=== PATIENT | male | born 1935 | race Caucasian/White ===

== ENCOUNTER 2016-12-15 08:49 | Inpatient (IN) | payer MEDICARE, OTHER ==
[~2016-12-15] VITALS: Ht 180.3 cm; Wt 81.1 kg
[~2016-12-15 08:49] MED LIST: LEVO75TA4 PO
[2016-12-15 08:52] VITALS: BP 120/68; PULSE 78; RESP 18; O2SAT 95
[2016-12-15] MEDS ORDERED: 0.9% Sodium Chloride 1,000 ML IV ONE (08:58)
[2016-12-15] MEDS ORDERED: Ondansetron 2 mg/mL 2 mL Inj IV PRN (09:00)
[2016-12-15 09:27] LABS: BASOPHILS % (AUTO) 0.4 % (0-3); EOSINOPHILS % (AUTO) 5.7 % (0-5); MONOCYTES % (AUTO) 8.5 % (4-12); Mean Corpuscular Hemoglobin 28.8 pg (27.0-35.0); NEUTROPHILS % (AUTO) 71.7 % (40-74); Platelet Count 336 bil/L (150-400)
--- NOTE | 2016-12-15 09:54 | ED.REPORT ---
HPI-General Illness Date of Service Dec 15, 2016 ED Provider: Adrián Mcdonough MD History of Present Illness: Patient is a 80 y.o. M with past medical history of metastatic penile cancer, doppler US of right lower extremity showed presence of DVT. Patient reported a week history of right lower legt swelling post inguinal lymph node resection. Patient recently seen as outpatient in oncology noted to have severe hypothyroidism and started on 75 mcg. Nursing Notes Stated Complaint: CLOT IN LEG Chief Complaint: Extremity Trauma Nursing Notes Reviewed: Yes Allergies: Coded Allergies: No Known Allergies (Unverified , 12/15/16) Scheduled Levothyroxine (Levothyroxine) 150 Mcg Tablet 150 MCG PO DAILY General Time Seen by MD: 09:15 Chief Complaint Other (metastatic penile cancer, DVT RLE) Sudden in Onset?: No Onset Occurred: 1 week ago Past Medical History Past Medical History Notes: Past Medical History Primary cancer of glans penis Penile mass Metastatic penile cancer Past Surgical History Penile mass resection Inguinal lymphnode resection Family History noncontributory Smoking History Unknown if Ever Smoker Social History Alcohol Use: Denies alcohol use Other Social History: Good social support, Local resident Ambulatory Status Independent Review of Systems Full Review of Systems Constitutional: Reports: Lethargy, Denies: Chills, Fatigue, Fever, Malaise, Recent wt loss, Weakness - generalized Eyes: Denies: Blurred left, Blurred right Ears / Nose / Throat: Reports: Hearing loss bilateral Respiratory: Reports: Non-productive cough, Denies: Dyspnea on exertion, Hemoptysis Cardiovascular: Denies: Chest pain, Syncope GI: Denies: Bloody/tarry stool, Hematemesis Musculoskeletal: Reports: Extremity swelling (right lower extremity) Physical Exam Vital Signs Vital Signs Date Time Temp Pulse Resp B/P Pulse Ox O2 Delivery O2 Flow Rate FiO2 12/15/16 08:52 36.0 78 18 120/68 95 Room Air Initial VS: Reviewed General/Constitutional: Well-developed, Well-nourished Head / Eyes: Atraumatic, Normocephalic, PERRL ENT: Mucous membranes moist, Conjunctiva normal, No scleral icterus Neck: Supple, Non-tender, Full range of motion Respiratory: Breath sounds normal, Clear to auscultation, No respiratory distress Cardiovascular: Regular rate & rhythm, Heart sounds normal, Intact distal pulses Abdomen / GI: Soft, Non-tender, No guarding, No rebound, No distention Back: No CVA tenderness Skin: Warm, Dry, No cyanosis Neurologic: Alert, Oriented, Nonfocal Psychiatric: Mood/affect normal, Behavior normal, Normal thought content Conjunctiva / Sclera: Positive: Pallor Right Hip: Positive: Swelling present... (Moderate from right inguinal area with wound vac extending to greater trochanter, palpable hematoma felt) Right Thigh: Positive: Swelling present... (Moderate) Right Leg / Calf: Positive: R calf > L calf, Swelling present... (Moderate), Tenderness present... (Postive Homans sign and chord felt in calf ) Interpretation & Diagnostics Lab Results Interpretation Result Diagram: 12/15/16 0920 12/15/16 0920 Test 12/15/16 09:20 White Blood Count 6.7th/mm3 (3.8-10.1) Red Blood Count 3.02mil/mm3 (4.40-5.80) Hemoglobin 8.7g/dL (13.8-17.2) Hematocrit 28.7% (41.0-50.0) Mean Corpuscular Volume 95.0fL (81-100) Mean Corpuscular Hemoglobin 28.8pg (27.0-35.0) Mean Corpuscular Hemoglobin Concent 30.3% (32.0-37.0) Red Cell Distribution Width 13.5% (12.3-15.4) Platelet Count 336bil/L (150-400) Neutrophils (%) (Auto) 71.7% (40-74) Lymphocytes (%) (Auto) 13.6% (14-46) Monocytes (%) (Auto) 8.5% (4-12) Eosinophils (%) (Auto) 5.7% (0-5) Basophils (%) (Auto) 0.4% (0-3) Prothrombin Time 10.3sec (8.1-12.5) Prothromb Time International Ratio 0.96ratio Activated Partial Thromboplast Time 30.3sec (22.8-33.0) Sodium Level 139mEq/L (134-144) Potassium Level 4.1mEq/L (3.5-5.2) Chloride Level 102mEq/L (97-108) Carbon Dioxide Level 24mmol/L (18-29) Blood Urea Nitrogen 22mg/dL (8-27) Creatinine 1.23mg/dL (0.76-1.27) Estimat Glomerular Filtration Rate 60mL/min (>59) Glucose Level 100mg/dL (60-99) Calcium Level 7.8mg/dL (8.5-10.1) Magnesium Level 2.2mg/dL (1.6-2.6) Total Bilirubin 0.2mg/dL (0.0-1.2) Aspartate Amino Transf (AST/SGOT) 11U/L (0-50) Alanine Aminotransferase (ALT/SGPT) 5U/L (0-44) Alkaline Phosphatase 96U/L (25-160) Total Protein 6.1g/dL (6.4-8.4) Albumin 2.6g/dL (3.4-5.0) Lipase 12U/L (13-60) Hold Farnsworth Top Tube Received (Received) CT Abd / Pelvis Interpretation IMPRESSION: 1. No findings to suggest vascular injury in the right inguinal operative bed. No findings to suggest hematoma or abscess in this region. 2. Small gas-containing soft tissue defect at the surgical bed with surrounding edema or probable postsurgical change as above. 3. Subcutaneous edema of the right lower extremity. This may be associated with postoperative cellulitis. Please correlate clinically. 4. Sclerotic lesion in the left iliac wing which has demonstrated 11 months stability. Continued surveillance recommended. This may represent an enchondroma. Dictated by: Mis Longoria M.D. on 12/15/2016 at 11:31 Approved by: Mis Longoria M.D. on 12/15/2016 at 11:40 Interpretation / Wet Read by: Interpret - Radiologist US Focused Lower Ext Venous IMPRESSION: 1. Extensive occlusive right lower extremity deep venous thrombosis. 2. 6.9 x 7.5 cm irregular complex fluid collection at the site of right groin surgical drain, presumably postoperative hematoma. Findings were discussed with Dr. Richardson by the document image technician; patient was sent to the emergency department for further management. Dictated by: Daniel Quevedo M.D. on 12/15/2016 at 8:55 Approved by: Daniel Quevedo M.D. on 12/15/2016 at 8:58 Exam Interpreted by: Radiologist Re-Eval/Medical Decision Med Decision/Clinical Course Patient is a 80 y.o. M with past medical history of metastatic penile cancer, doppler US of right lower extremity showed presence of DVT. DDx Right LE DVT, hypercoagulable state due to mestatic disease, Hematoma of right hip and lower extemity to knee Anemia of chronic disease vs new bleed associated with hematoma of right hip CBC Hgb 8.7 last was 10, CMP normal CT pelvis and right lower extremity ordered, no signs of acute bleeding, possible post surgical cellulitis Consultation : Consulted With: Hospitalist Requested Call at: 10:00 Discharge & Departure Primary Impression: DVT (deep venous thrombosis) Additional Impression: History of penile cancer Disposition: ADMITTED TO HOSPITAL Referrals: Angelito Maguire MD (PCP) Crit Care Except Billable Proc Time Spent: 30-74 minutes Services Performed: Patient management by me, Time spent at bedside, Reviewing test results, Reviewing imaging, Discussing patient care, Documentation in record, Time with fam/surrogate Attending Statement 80-year-old male history of penile cancer with recent lymph node removal right groin and subsequent fistula with drain placed presenting from ultrasound after right lower extremity ultrasound showed DVT. No history of DVTs. Patient had some concern for a hematoma around the drain CT scan was performed with no evidence of hematoma. His hemoglobin is 8.7 which is down slightly from several days ago 10. Discussed with patient's oncologist patient will be admitted to hospital. Heparin drip started. Resident discuss case with hospitalist. Critical care time billed as above. GURWIDNER DE LA TORRE DO Dec 15, 2016 09:43 Adrián Mcdonough MD Dec 15, 2016 09:54
[2016-12-15 09:55] LABS: INR 0.96 ratio
[2016-12-15] MEDS ORDERED: Heparin 25K Unit/500mL 0.45 NS 25,000 UNIT in IV Premix 1 EACH IV ONE (10:00)
[2016-12-15] MEDS ORDERED: Heparin 5,000 Unit/mL Inj IVPUSH ONE (10:00)
[2016-12-15 10:02] LABS: Magnesium 2.2 mg/dL (1.6-2.6)
[2016-12-15] MEDS ORDERED: LEVO150T5 PO (11:26)
--- NOTE | 2016-12-15 11:42 | DRSVH ---
PROCEDURE: CT PELVIS WITH CONTRAST ([id number]) INDICATIONS: right hip/extremity hematoma TECHNIQUE: After the administration of intravenous contrast, 5 mm thick sections acquired from the iliac crests to the symphysis. 5 mm coronal and sagittal reformats were acquired. For radiation dose reduction, the following was used: automated exposure control, adjustment of mA and/or kV according to patient size. COMPARISON: [facility], CT, CT ABD PELVIS W&WO CON IVP, 01/19/2016, 12:09. [facility], CT, CT CHEST ABD PELVIS W CON, 09/26/2016, 16:40. FINDINGS: Image quality: Excellent. Peritoneum and bowel: Bowel loops demonstrate normal wall thickness and caliber. There are scattered sigmoid diverticula. No evidence for diverticulitis. No free fluid or air. Genitourinary: Bladder wall thickness is normal. Nodes and vessels: Dense atheromatous calcifications are present within the bilateral iliac arteries. The internal and external iliac arteries are patent bilaterally. Mild atheromatous calcifications ar e present bilaterally in the common femoral arteries. The right superficial femoral artery and profun da are patent. Mild mural irregularity is present secondary to atheromatous calcification. No finding s to suggest extravasation or hematoma. Arteries of the left lower extremity are patent. No inguinal adenopathy. Bones: Sclerotic focus within the left iliac wing is unchanged when compared with the study dated 01/03 04/20. Miscellaneous: A gas-filled soft tissue defect is present at the right inguinal canal. There is a mod erate amount of surrounding fat stranding suggesting edema or tissue injury. There is no discrete flu id collection to suggest abscess or hematoma. There is extensive subcutaneous emphysema of the right lower extremity subcutaneous fat. IMPRESSION: 1. No findings to suggest vascular injury in the right inguinal operative bed. No findings to suggest hematoma or abscess in this region. 2. Small gas-containing soft tissue defect at the surgical bed with surrounding edema or probable pos tsurgical change as above. 3. Subcutaneous edema of the right lower extremity. This may be associated with postoperative celluli tis. Please correlate clinically. 4. Sclerotic lesion in the left iliac wing which has demonstrated 11 months stability. Continued surv eillance recommended. This may represent an enchondroma. Dictated by: Mis Longoria M.D. on 12/15/2016 at 11:31 Approved by: Mis Longoria M.D. on 12/15/2016 at 11:40
[2016-12-15 12:00] VITALS: BP 135/72; PULSE 75; RESP 18; O2SAT 95
[2016-12-15 12:05] VITALS: PULSE 75
--- NOTE | 2016-12-15 13:27 | PCM.HPMED ---
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 Of note, pt also noted to have severe hypothyroidism on 12/11 TSH45.3, FT4 0.35, prior TSH59 in . plan was to increase LT4 from 75 to 150mcg. Regarding senior living plan for cancer, it was noted that pt cannot be a candidate for Rtx given complicated groin fistula. therefore, Cthemotx with Carb/taxol was planned after obtaining CT c/a/p to rule out metastatis In ED, VS 120/68, 78, 18, 95%on RA, afebrile, ED ordered CT pelvis with contrast , which showed no hematoma/abscess/vascular injury. During encounter, patient stated that he has not had any acute difference in his right leg, denied any acute worsening or pain, swelling, warmth, leg size has been increased since the surgery , been wearing ALEXANDER stocking. Patient can ambulate without assistance, denied difficulty breathing, hemoptysis, chest pain, palpitation, urinary difficulties, previous head trauma, bleeding episode , FHx of bleeding diathesis, fever, chills. 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 The patient was very passive when I saw him in consultation, was not interested in any significant intervention. I checked his thyroid function on the way out of the clinic, and it came back severely abnormal with a TSH of 59, consistent with severe hypothyroidism. We had called in levothyroxine 75 mcg to start with. I have not seen him in the last two months. The patient has very little contact to the medical field. Since he wanted to minimize interventions as much as possible after his distal penectomy, we had to modify the decision making of management. Ideally, we would have administered systemic chemotherapy after the penectomy for downsizing his disease and reduce micrometastatic risk, followed by adjuvant radiation to the pelvis. However, since the patient was not interested in chemotherapy, we discussed at our Tumor Board and decided that as other possible pragmatic approach would be to perform a superficial inguinal lymphadenectomy and then perform possibly radiation to the celiac node and avoid chemotherapy until evidence of systemic relapse. The patient underwent a right lymphadenectomy by Dr. Ophelia rBar who had performed his penectomy on November 01, 2016. Pathology showed eight lymph nodes submitted, of which five were involved with metastatic squamous cell carcinoma with focal extracapsular extension. 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 [facility] the past several weeks by Dr. Macario. He has a drain in place, as well as wound VAC. In review of Dr. Macario's note of December 06, he has a 1.5 x 0.5 cm opening in the right groin that is relatively deep, almost 8 cm. Negative-pressure therapy with wound VAC continues. He had canceled his visit with me a couple of times because of this wound issue but this time we asked him to still come in. He is here with his son. Review of Systems: Pertinent positives as noted in history of present illness. 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 His sons state that he is relatively active. He is and lives alone. He has two sons. He has no history of smoking or alcoholism. FAMILY HISTORY: no hx of bleeding diathesis Social History Hx Alcohol Use: No Hx Substance Use: No Smoking Status: Unknown if Ever Smoker Exam Vital Signs Vital Sign - Last Date Time Temp Pulse Resp B/P Pulse Ox O2 Delivery O2 Flow Rate FiO2 12/15/16 08:52 36.0 78 18 120/68 95 Room Air Exam NAD, comfortably laying down on the bed no JVD, MMM, no LAD RRR, nl s1, s2 no mrg CTAB, no w,c S,ND,NT,normoactive BS+ RLE applied ALEXANDER stocking, nontender, swollen, not warm, pulses 2/2 Lab and Diagnostics Result Diagram: 12/15/1691912/15/16919 X-Rays, CTs and MRIs PROCEDURE: CT PELVIS WITH CONTRAST ([id number]) INDICATIONS: right hip/extremity hematoma TECHNIQUE: After the administration of intravenous contrast, 5 mm thick sections acquired from the iliac crests to the symphysis. 5 mm coronal and sagittal reformats were acquired. For radiation dose reduction, the following was used: automated exposure control, adjustment of mA and/or kV according to patient size. COMPARISON: [facility], CT, CT ABD PELVIS W&WO CON IVP, 01/19/2016, 12:09. [facility], CT, CT CHEST ABD PELVIS W CON, 09/26/2016, 16: 40. FINDINGS: Image quality: Excellent. Peritoneum and bowel: Bowel loops demonstrate normal wall thickness and caliber. There are scattered sigmoid diverticula. No evidence for diverticulitis. No free fluid or air. Genitourinary: Bladder wall thickness is normal. Nodes and vessels: Dense atheromatous calcifications are present within the bilateral iliac arteries. The internal and external iliac arteries are patent bilaterally. Mild atheromatous calcifications are present bilaterally in the common femoral arteries. The right superficial femoral artery and profunda are patent. Mild mural irregularity is present secondary to atheromatous calcification. No findings to suggest extravasation or hematoma. Arteries of the left lower extremity are patent. No inguinal adenopathy. Bones: Sclerotic focus within the left iliac wing is unchanged when compared with the study dated 01/19/16. Miscellaneous: A gas-filled soft tissue defect is present at the right inguinal canal. There is a moderate amount of surrounding fat stranding suggesting edema or tissue injury. There is no discrete fluid collection to suggest abscess or hematoma. There is extensive subcutaneous emphysema of the right lower extremity subcutaneous fat. IMPRESSION: 1. No findings to suggest vascular injury in the right inguinal operative bed. No findings to suggest hematoma or abscess in this region. 2. Small gas-containing soft tissue defect at the surgical bed with surrounding edema or probable postsurgical change as above. 3. Subcutaneous edema of the right lower extremity. This may be associated with postoperative cellulitis. Please correlate clinically. 4. Sclerotic lesion in the left iliac wing which has demonstrated 11 months stability. Continued surveillance recommended. This may represent an enchondroma. Dictated by: Mis Longoria M.D. on 12/15/2016 at 11:31 Approved by: Mis Longoria M.D. on 12/15/2016 at 11:40 Additional Diagnostics: PROCEDURE: US VEINOUS LEG DUPLEX UNILATERAL, RIGHT INDICATIONS: 80 year-old male with penile carcinoma, and right leg swelling. TECHNIQUE: Real-time imaging, as well as color and pulse Doppler interrogation, were performed of the lower extremity deep veins from the inguinal ligament to the popliteal fossa. COMPARISON: [facility], CT, CT CHEST ABD PELVIS W CON, 09/26/2016, 16:40. FINDINGS: There is extensive noncompressible echogenic thrombus involving the common femoral vein, superficial femoral vein, popliteal vein, and posterior tibial vein. Color and pulse Doppler demonstrate absent intraluminal flow. There is absent augmentation response to distal compression maneuver. An irregular right groin fluid collection measures 6.9 x 7.5 cm, at the site of surgical drain from recent inguinal lymph node dissection. IMPRESSION: 1. Extensive occlusive right lower extremity deep venous thrombosis. 2. 6.9 x 7.5 cm irregular complex fluid collection at the site of right groin surgical drain, presumably postoperative hematoma. Findings were discussed with Dr. Richardson by the roulette dealer; patient was sent to the emergency department for further management. Dictated by: Daniel Quevedo M.D. on 12/15/2016 at 8:55 Approved by: Daniel Quevedo M.D. on 12/15/2016 at 8:58 Assessment & Plan 1. extensive RLE dvt, POA, presumably acute as per Radiology given complete obstruction in Duplex, in the setting of malignancy, surgery<2mo c/b Rt groin lymphatic fistula, pt is not symptomatic. -started heparin gtt for now, unlikely needs thrombolytic intervention given stable status -given poor eGFR60, pt likely not good candidate for NOAC, LMWH, consider starting Coumadin, appreciate oncology input. -monitor h/h, pt, ptt q6h, -monitor respiratory sx closely for PE as clots dissolve, currently no signs of PE. 2.severe hypothyroidism, -recently increased to 150mcg qd by , after 2mo of 75mcg, still this huge increment even considering TSH, will increase 25mcg especiallly given age to prevent adverse effect, pt is not symptomatic, and TSH should be checked in 6wks. 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
--- NOTE | 2016-12-15 16:51 | PCM.PHAPRO ---
Progress Indication: DVT Home Dose: NEW START INR 0.95 CONCURRENT:NONE GOAL INR: 2-3 Pharmacy will continue to follow daily. Thank you for consulting pharmacy in the care of this patient. Jonathan Alatorre Dec 15, 2016 16:51
[2016-12-15 18:07] VITALS: BP 151/84; PULSE 97; RESP 19; O2SAT 96
--- NOTE | 2016-12-15 20:05 | CCS NOTE ---
[facility] [address] [place] [id number] MEDICAL ONCOLOGY OFFICE NOTE PATIENT: PAMELA BLANDON : 1935 MR#: [id number] DATE: 12/15/2016 JOB ID: [id number] DATE: 12/15/2016 SUBJECTIVE: For details please refer to my office note of December 13. He was noted to have a large swelling in his right leg that possibly was attributed by the other providers to his inguinal surgery and lymphedema, but I went ahead and ordered a Doppler ultrasound and I was contacted early this morning showing a large DVT involving the right common femoral vein all the way down to the calf in an extensive and occlusive fashion. In addition, the technical solutions engineer mentioned that he has an approximately 7 x 7 cm complex fluid collection in the right groin and they interpreted that as a hematoma. I advised them to send the patient to the ER and spoke with the ER physician regarding the concern of coexistence of a hematoma as well as a large blood clot and the need for involvement of several specialties. The CT of the pelvis with contrast was ordered by the ER physician, which I personally reviewed with Dr. Mis Longoria this evening. Meanwhile the patient has been started on a heparin drip. The CT pelvis showed no evidence of hematoma or abscess. The area that they are referring to is simply the postoperative field that is having a wound VAC and is being packed. The previous iliac lymph node that was slightly enlarged is present and has increased by 2 mm, from 8 mm to 10 mm compared to September. On exam, he is stable, without fever and in no respiratory distress. His labs show a white count of 6.7, hemoglobin 8.7, platelets 337. Chemistry shows a creatinine of 1.23; previous creatinine was 1.45. Stable LFTs. ASSESSMENT AND PLAN: An 80-year-old gentleman with regionally advanced penile cancer post partial penectomy in late October and a right inguinal lymphadenectomy that was complicated with a lymphatic percutaneous fistula. Further details in my office notes of two days ago, December 13, and in October, and the rest of the data above. The patient did have a large and extensive DVT in his right leg per the ultrasound that I had ordered after I saw him on Sunday. He would require anticoagulation, but the ultrasound had also reported a fluid collection next to the common femoral vein that was felt to be possibly a hematoma, and that would complicate the matter quite a bit. However, in review of the CT scan, this is not a hematoma and is postsurgical change in that area that is being managed with wound VAC. Therefore, at this point, standard anticoagulation should be sufficient and a surgical consultation is not necessary. He does have some renal insufficiency with a GFR of around 50. His creatinine is between 1.2 and 1.5. Therefore, I think he should have a dose-reduced low molecular weight heparin. His actual weight is 80 kg and instead of 80 mg dose he should receive 50-60 mg of Lovenox twice daily to adjust for his renal insufficiency for five days concomitantly with Coumadin 5 mg daily. I spoke with Dr. Chambers about that to switch from heparin drip to Lovenox so that the patient can be discharged home. He desires to be able to go home tomorrow if at all possible.
[2016-12-15 20:41] VITALS: BP 143/72; PULSE 78; RESP 20; O2SAT 95
[2016-12-16 01:03] VITALS: BP 126/69; PULSE 75; RESP 20; O2SAT 95
[2016-12-16 05:14] VITALS: PULSE 76
[2016-12-16 05:55] VITALS: BP 138/70; PULSE 90; RESP 20; O2SAT 94
[2016-12-16 06:35] LABS: BASOPHILS % (AUTO) 0.4 % (0-3); EOSINOPHILS % (AUTO) 5.7 % (0-5); MONOCYTES % (AUTO) 11.7 % (4-12); Mean Corpuscular Hemoglobin 29.2 pg (27.0-35.0); Mean Corpuscular Volume 94.3 fL (81-100); NEUTROPHILS % (AUTO) 60.9 % (40-74); Platelet Count 306 bil/L (150-400)
--- NOTE | 2016-12-16 07:41 | PCM.CONPHA ---
Subjective History of Present Illness [facility] RTM RTM Date Dec 16 INR 0.95 1.0 INR change 0.05 Warf Dose 5 7.5 Objective Vital Signs Date Time Temp Pulse Resp B/P Pulse Ox O2 Delivery O2 Flow Rate FiO2 12/16/16 05:55 36.6 90 20 138/70 94 Room Air 12/16/16 05:14 76 12/16/16 01:03 36.6 75 20 126/69 95 Room Air 12/15/16 20:41 36.6 78 20 143/72 95 Room Air 12/15/16 18:07 36.7 97 19 151/84 96 Room Air 12/15/16 12:05 75 12/15/16 12:00 36.6 75 18 135/72 95 Room Air 12/15/16 08:52 36.0 78 18 120/68 95 Room Air Intake and Output 12/14/16 12/15/16 12/16/16 00:00 00:00 00:00 Intake Total 400 ml Output Total 300 ml Balance 100 ml Weight (Kilograms): 81.100 Height (Feet): 5 Height (Inches): 11.00 Test 12/15/16 09:20 12/15/16 21:55 12/16/16 05:30 Lipase 12U/L (13-60) Hold Farnsworth Top Tube Received (Received) Activated Partial Thromboplast Time 31.0sec (22.8-33.0) White Blood Count 5.4th/mm3 (3.8-10.1) Red Blood Count 2.98mil/mm3 (4.40-5.80) Hemoglobin 8.7g/dL (13.8-17.2) Hematocrit 28.1% (41.0-50.0) Mean Corpuscular Volume 94.3fL (81-100) Mean Corpuscular Hemoglobin 29.2pg (27.0-35.0) Mean Corpuscular Hemoglobin Concent 31.0% (32.0-37.0) Red Cell Distribution Width 13.4% (12.3-15.4) Platelet Count 306bil/L (150-400) Neutrophils (%) (Auto) 60.9% (40-74) Lymphocytes (%) (Auto) 21.1% (14-46) Monocytes (%) (Auto) 11.7% (4-12) Eosinophils (%) (Auto) 5.7% (0-5) Basophils (%) (Auto) 0.4% (0-3) Prothrombin Time 10.7sec (8.1-12.5) Prothromb Time International Ratio 1.00ratio Sodium Level 138mEq/L (134-144) Potassium Level 4.4mEq/L (3.5-5.2) Chloride Level 102mEq/L (97-108) Carbon Dioxide Level 25mmol/L (18-29) Blood Urea Nitrogen 22mg/dL (8-27) Creatinine 1.16mg/dL (0.76-1.27) Estimat Glomerular Filtration Rate 64mL/min (>59) Glucose Level 86mg/dL (60-99) Calcium Level 7.6mg/dL (8.5-10.1) Phosphorus Level 3.0mg/dL (2.5-4.9) Magnesium Level 2.0mg/dL (1.6-2.6) Total Bilirubin 0.2mg/dL (0.0-1.2) Aspartate Amino Transf (AST/SGOT) 12U/L (0-50) Alanine Aminotransferase (ALT/SGPT) 5U/L (0-44) Alkaline Phosphatase 90U/L (25-160) Total Protein 5.2g/dL (6.4-8.4) Albumin 2.6g/dL (3.4-5.0) Jonathan Alatorre Dec 16, 2016 07:40
[2016-12-16 08:36] VITALS: PULSE 82
[2016-12-16] MEDS ORDERED: WARF5TAB PO (10:33)
[2016-12-16] MEDS ORDERED: LOV60 SUBQ (10:33)
--- NOTE | 2016-12-16 10:48 | PCM.DIMED ---
Discharge Instructions Date of Service Dec 16, 2016 Dates of Hospitalization Dec 15, 2016 at 10:31 Discharge Diagnosis Discharge Diagnosis acute extensive DVT on RLE Medication Instructions Continue to get injection of Lovenox heparin injection every 12hrs for 5more days Please continue to take Coumadin 5mg daily at night, dosage has to be adjusted in [facility]. Diet No restrictions Activity No restrictions Patient Instructions You were hospitalized with acute blood clots on right leg, treated with blood thinner. Follow-up plan please follow up with [facility], in this week to check your level of blood thinning, Please follow up with as scheduled. Follow-up with PCP in: 2 weeks Wilver Chambers MD Dec 16, 2016 10:43
--- NOTE | 2016-12-16 14:52 | PCM.DC.MED ---
Discharge Summary Date of Service Dec 16, 2016 Dates of Hospitalization Date of Hospital Admission Dec 15, 2016 at 10:31 Date of Discharge: Dec 16, 2016 Providers: Admitting Physician: Wilver Borjas MD Primary Care Physician: Angelito Maguire MD Attending Physician: César Sofia MD Diagnosis at Time of Discharge Diagnosis at Time of Discharge 1. 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 Consultations Oncology, Procedures XRay, CTs & MRIs PROCEDURE: CT PELVIS WITH CONTRAST ([id number]) INDICATIONS: right hip/extremity hematoma TECHNIQUE: After the administration of intravenous contrast, 5 mm thick sections acquired from the iliac crests to the symphysis. 5 mm coronal and sagittal reformats were acquired. For radiation dose reduction, the following was used: automated exposure control, adjustment of mA and/or kV according to patient size. COMPARISON: [facility], CT, CT ABD PELVIS W&WO CON IVP, 01/19/2016, 12:09. [facility], CT, CT CHEST ABD PELVIS W CON, 09/26/2016, 16: 40. FINDINGS: Image quality: Excellent. Peritoneum and bowel: Bowel loops demonstrate normal wall thickness and caliber. There are scattered sigmoid diverticula. No evidence for diverticulitis. No free fluid or air. Genitourinary: Bladder wall thickness is normal. Nodes and vessels: Dense atheromatous calcifications are present within the bilateral iliac arteries. The internal and external iliac arteries are patent bilaterally. Mild atheromatous calcifications are present bilaterally in the common femoral arteries. The right superficial femoral artery and profunda are patent. Mild mural irregularity is present secondary to atheromatous calcification. No findings to suggest extravasation or hematoma. Arteries of the left lower extremity are patent. No inguinal adenopathy. Bones: Sclerotic focus within the left iliac wing is unchanged when compared with the study dated 01/19/16. Miscellaneous: A gas-filled soft tissue defect is present at the right inguinal canal. There is a moderate amount of surrounding fat stranding suggesting edema or tissue injury. There is no discrete fluid collection to suggest abscess or hematoma. There is extensive subcutaneous emphysema of the right lower extremity subcutaneous fat. IMPRESSION: 1. No findings to suggest vascular injury in the right inguinal operative bed. No findings to suggest hematoma or abscess in this region. 2. Small gas-containing soft tissue defect at the surgical bed with surrounding edema or probable postsurgical change as above. 3. Subcutaneous edema of the right lower extremity. This may be associated with postoperative cellulitis. Please correlate clinically. 4. Sclerotic lesion in the left iliac wing which has demonstrated 11 months stability. Continued surveillance recommended. This may represent an enchondroma. Dictated by: Mis Longoria M.D. on 12/15/2016 at 11:31 Approved by: Mis Longoria M.D. on 12/15/2016 at 11:40 Other Diagnostics PROCEDURE: US VEINOUS LEG DUPLEX UNILATERAL, RIGHT INDICATIONS: 80 year-old male with penile carcinoma, and right leg swelling. TECHNIQUE: Real-time imaging, as well as color and pulse Doppler interrogation, were performed of the lower extremity deep veins from the inguinal ligament to the popliteal fossa. COMPARISON: [facility], CT, CT CHEST ABD PELVIS W CON, 09/26/2016, 16:40. FINDINGS: There is extensive noncompressible echogenic thrombus involving the common femoral vein, superficial femoral vein, popliteal vein, and posterior tibial vein. Color and pulse Doppler demonstrate absent intraluminal flow. There is absent augmentation response to distal compression maneuver. An irregular right groin fluid collection measures 6.9 x 7.5 cm, at the site of surgical drain from recent inguinal lymph node dissection. IMPRESSION: 1. Extensive occlusive right lower extremity deep venous thrombosis. 2. 6.9 x 7.5 cm irregular complex fluid collection at the site of right groin surgical drain, presumably postoperative hematoma. Findings were discussed with Dr. Richardson by the bakery pastry internship; patient was sent to the emergency department for further management. Dictated by: Daniel Quevedo M.D. on 12/15/2016 at 8:55 Approved by: Daniel Quevedo M.D. 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 Of note, pt also noted to have severe hypothyroidism on 12/11 TSH45.3, FT4 0.35, prior TSH59 in . plan was to increase LT4 from 75 to 150mcg. Regarding care home plan for cancer, it was noted that pt cannot be a candidate for Rtx given complicated groin fistula. therefore, Cthemotx with Carb/taxol was planned after obtaining CT c/a/p to rule out metastatis In ED, VS 120/68, 78, 18, 95%on RA, afebrile, ED ordered CT pelvis with contrast , which showed no hematoma/abscess/vascular injury. During encounter, patient stated that he has not had any acute difference in his right leg, denied any acute worsening or pain, swelling, warmth, leg size has been increased since the surgery , been wearing ALEXANDER stocking. Patient can ambulate without assistance, denied difficulty breathing, hemoptysis, chest pain, palpitation, urinary difficulties, previous head trauma, bleeding episode , FHx of bleeding diathesis, fever, chills. 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 The patient was very passive when I saw him in consultation, was not interested in any significant intervention. I checked his thyroid function on the way out of the clinic, and it came back severely abnormal with a TSH of 59, consistent with severe hypothyroidism. We had called in levothyroxine 75 mcg to start with. I have not seen him in the last two months. The patient has very little contact to the medical field. Since he wanted to minimize interventions as much as possible after his distal penectomy, we had to modify the decision making of management. Ideally, we would have administered systemic chemotherapy after the penectomy for downsizing his disease and reduce micrometastatic risk, followed by adjuvant radiation to the pelvis. However, since the patient was not interested in chemotherapy, we discussed at our Tumor Board and decided that as other possible pragmatic approach would be to perform a superficial inguinal lymphadenectomy and then perform possibly radiation to the celiac node and avoid chemotherapy until evidence of systemic relapse. The patient underwent a right lymphadenectomy by Dr. Ophelia Brar who had performed his penectomy on November 01, 2016. Pathology showed eight lymph nodes submitted, of which five were involved with metastatic squamous cell carcinoma with focal extracapsular extension. 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 [facility] the past several weeks by Dr. Macario. He has a drain in place, as well as wound VAC. In review of Dr. Macario's note of December 06, he has a 1.5 x 0.5 cm opening in the right groin that is relatively deep, almost 8 cm. Negative-pressure therapy with wound VAC continues. He had canceled his visit with me a couple of times because of this wound issue but this time we asked him to still come in. He is here with his son. Hospital Course 1. extensive RLE dvt, POA, presumably acute as per Radiology given complete obstruction in Duplex, in the setting of malignancy, surgery<2mo c/b Rt groin lymphatic fistula, pt was started heparin gtt initially given concerning findings on ultrasound, hematoma, possible surgical intervention, however, pelvic CT showed no hematoma/abscess, therefore switched to bridging with Lovenox 60mg q12h(rather than 80mg given eGFR60 per ) and Coumadin. pt tolerated well, no signs of bleeding, h/h plan is to continue Levaquin for 5 more days, continue Coumadin with follow-up INR check in PT clinic in 5days, follow up with as scheduled. 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 Not active Exam Vital Signs (Last) Date Time Temp Pulse Resp B/P Pulse Ox O2 Delivery O2 Flow Rate FiO2 12/16/16 08:36 82 12/16/16 05:55 36.6 20 138/70 94 Room Air Exam NAD, comfortably laying down on the bed no JVD, MMM, no LAD RRR, nl s1, s2 no mrg CTAB, no w,c S,ND,NT,normoactive BS+ RLE applied ALEXANDER stocking, nontender, swollen, not warm, pulses 2/2 Test 12/15/16 09:20 12/15/16 21:55 12/16/16 05:30 Lipase 12U/L (13-60) Hold Farnsworth Top Tube Received (Received) Activated Partial Thromboplast Time 31.0sec (22.8-33.0) White Blood Count 5.4th/mm3 (3.8-10.1) Red Blood Count 2.98mil/mm3 (4.40-5.80) Hemoglobin 8.7g/dL (13.8-17.2) Hematocrit 28.1% (41.0-50.0) Mean Corpuscular Volume 94.3fL (81-100) Mean Corpuscular Hemoglobin 29.2pg (27.0-35.0) Mean Corpuscular Hemoglobin Concent 31.0% (32.0-37.0) Red Cell Distribution Width 13.4% (12.3-15.4) Platelet Count 306bil/L (150-400) Neutrophils (%) (Auto) 60.9% (40-74) Lymphocytes (%) (Auto) 21.1% (14-46) Monocytes (%) (Auto) 11.7% (4-12) Eosinophils (%) (Auto) 5.7% (0-5) Basophils (%) (Auto) 0.4% (0-3) Prothrombin Time 10.7sec (8.1-12.5) Prothromb Time International Ratio 1.00ratio Sodium Level 138mEq/L (134-144) Potassium Level 4.4mEq/L (3.5-5.2) Chloride Level 102mEq/L (97-108) Carbon Dioxide Level 25mmol/L (18-29) Blood Urea Nitrogen 22mg/dL (8-27) Creatinine 1.16mg/dL (0.76-1.27) Estimat Glomerular Filtration Rate 64mL/min (>59) Glucose Level 86mg/dL (60-99) Calcium Level 7.6mg/dL (8.5-10.1) Phosphorus Level 3.0mg/dL (2.5-4.9) Magnesium Level 2.0mg/dL (1.6-2.6) Total Bilirubin 0.2mg/dL (0.0-1.2) Aspartate Amino Transf (AST/SGOT) 12U/L (0-50) Alanine Aminotransferase (ALT/SGPT) 5U/L (0-44) Alkaline Phosphatase 90U/L (25-160) Total Protein 5.2g/dL (6.4-8.4) Albumin 2.6g/dL (3.4-5.0) Discharge Medications Discharge Medications Enoxaparin (Lovenox) 60 Mg/0.6 Ml Syringe 60 MG SUBQ Q12 Prescribed by: WILVER BORJAS MD Levothyroxine (Levothyroxine) 150 Mcg Tablet 150 MCG PO DAILY (Reported) Warfarin Sodium (Coumadin) 5 Mg Tablet 5 MG PO DAILY Prescribed by: WILVER BORJAS MD Additional med instructions Continue to get injection of Lovenox heparin injection every 12hrs for 5more days Please continue to take Coumadin 5mg daily at night, dosage has to be adjusted in [facility]. Followup Plan Disposition: Home Follow-up plan please follow up with [facility], in this week to check your level of blood thinning, Please follow up with as scheduled. Discharge Diet: No restrictions Discharge Activity: No restrictions Patient Instructions You were hospitalized with acute blood clots on right leg, treated with blood thinner. Follow-up with PCP in: 2 weeks Time spent 65 minutes Wilver Borjas MD Dec 16, 2016 14:52
[2016-12-16] MEDS ORDERED: Warfarin 5 MG, Warfarin 2.5 MG PO ONE ×2 (17:00)
[2017-04-10] MEDS ORDERED: WARF7.5T4 PO (15:46)
[2017-04-10] MEDS ORDERED: WARF5TAB7 PO (15:46)
== END 2016-12-16 12:21 | disposition home or self-care (01) | DRG 300 ==
LOC: SED 08:49 → OSC 10:31
PROVIDERS: ADMIT Internal Medicine; ATTEND Internal Medicine
DX: I82.411 Acute embolism and thrombosis of right femoral vein (principal); C77.4 Secondary and unspecified malignant neoplasm of inguinal and lower limb lymph nodes; I82.431 Acute embolism and thrombosis of right popliteal vein; Z90.79 Acquired absence of other genital organ(s); Z85.49 Personal history of malignant neoplasm of other male genital organs; E03.9 Hypothyroidism, unspecified; I89.8 Other specified noninfective disorders of lymphatic vessels and lymph nodes